=== PATIENT | male | born 1965 | race Caucasian/White ===

== ENCOUNTER 2020-12-15 09:03 | Outpatient (CLI) | payer OTHER ==
[~2020-12-15 09:03] MED LIST: LEVAQUIN500 MG PO; ULTRACET PO
== END 2020-12-15 09:27 | disposition home or self-care (01) ==
LOC: SONOGRAMA 09:03
PROVIDERS: ATTEND Urology
DX: N39.8 Other specified disorders of urinary system (principal); R97.20 Elevated prostate specific antigen [PSA]; N30.00 Acute cystitis without hematuria; N28.89 Other specified disorders of kidney and ureter

== ENCOUNTER 2020-12-30 15:58 | Outpatient (CLI) | payer OTHER | END 2020-12-30 16:05 | disposition home or self-care (01) | LOC: TOM 15:58 | PROVIDERS: ATTEND Urology | DX: N13.1 Hydronephrosis with ureteral stricture, not elsewhere classified (principal); R97.20 Elevated prostate specific antigen [PSA]; N28.9 Disorder of kidney and ureter, unspecified; N13.2 Hydronephrosis with renal and ureteral calculous obstruction ==

== ENCOUNTER 2021-01-19 11:44 | Outpatient (CLI) | payer OTHER | END 2021-01-19 11:59 | disposition home or self-care (01) | LOC: SONOGRAMA 11:44 | PROVIDERS: ATTEND Internal Medicine Endocrinology, Diabetes & Metabolism | DX: E04.2 Nontoxic multinodular goiter (principal) ==

== ENCOUNTER 2021-01-19 13:09 | Outpatient (CLI) | payer OTHER | END 2021-01-19 13:16 | disposition home or self-care (01) | LOC: NUCLEAR 13:09 | PROVIDERS: ATTEND Urology | DX: R97.20 Elevated prostate specific antigen [PSA] (principal); N13.1 Hydronephrosis with ureteral stricture, not elsewhere classified | CPT/HCPCS: 78708; A9551 ==

== ENCOUNTER → 2021-02-18 11:22 | Outpatient (CLI) | payer OTHER | END | disposition home or self-care (01) | LOC: LAB 11:22 | PROVIDERS: ATTEND Specialist/Technologist, Other Nephrology | DX: E11.21 Type 2 diabetes mellitus with diabetic nephropathy (principal); D63.1 Anemia in chronic kidney disease; N30.00 Acute cystitis without hematuria; E03.9 Hypothyroidism, unspecified; I12.9 Hypertensive chronic kidney disease with stage 1 through stage 4 chronic kidney disease, or unspecified chronic kidney disease; N39.0 Urinary tract infection, site not specified ==